=== PATIENT | female | born 1965 | race Caucasian/White ===

== ENCOUNTER 2017-01-01 14:55 | Emergency (ER) | payer SELFPAY ==
[2017-01-01 15:09] VITALS: RESP 16; TEMP 98.1; O2SAT 98
--- NOTE | 2017-01-01 15:24 | C.PDOC ---
History Of Present Illness 51 y/o female pmhx HTN, diabetes presents to the ED with complains of chest pain and arm pain which onset today. pt states she had left arm and chest pain today, which has resolved in the er. Pt reports having stress test last year but unsure of the results. Denies fever, chills, vomiting, dizziness or any other complaints. Time Seen by Provider: 01/01/17 15:03 Chief Complaint (Nursing): Chest Pain History Per: Patient History/Exam Limitations: no limitations Onset/Duration Of Symptoms: Hrs Current Symptoms Are (Timing): Still Present Severity: Mild Quality: "Pain" Associated Symptoms: Dyspnea Alleviating Factors: None Recent travel outside of the [place]: No Past Medical History Reviewed: Historical Data, Nursing Documentation, Vital Signs Vital Signs: Last Vital Signs Temp 98.1 F 01/01/17 15:06 Pulse 70 01/01/17 16:52 Resp 16 01/01/17 16:52 BP 112/73 01/01/17 16:52 Pulse Ox 98 01/01/17 16:55 - Medical History PMH: HTN, Hypercholesterolemia, Migraine Family History: States: Unknown Family Hx - Social History Hx Alcohol Use: No Hx Substance Use: No - Immunization History Hx Tetanus Toxoid Vaccination: No Hx Influenza Vaccination: No Hx Pneumococcal Vaccination: No Review Of Systems Except As Marked, All Systems Reviewed And Found Negative. Constitutional: Negative for: Fever Cardiovascular: Positive for: Chest Pain Respiratory: Positive for: Other (dyspnea) Gastrointestinal: Negative for: Vomiting Neurological: Negative for: Dizziness Physical Exam - Physical Exam Appears: Non-toxic, No Acute Distress Skin: Warm, Dry, No Rash Head: Atraumatic, Normacephalic Neck: Normal ROM, Supple Chest: Symmetrical Cardiovascular: Rhythm Regular, No Murmur Respiratory: Normal Breath Sounds, No Rales, No Rhonchi, No Wheezing Gastrointestinal/Abdominal: Soft Extremity: No Pedal Edema Extremity: Bilateral: Atraumatic Neurological/Psych: Oriented x3, Normal Speech ED Course And Treatment - Laboratory Results Result Diagrams: 01/01/17 15:24 01/01/17 15:24 ECG: Interpreted By Me, Viewed By Me ECG Rhythm: Sinus Rhythm Rate From EC (BPM) O2 Sat by Pulse Oximetry: 98 (on room air) Pulse Ox Interpretation: Normal Medical Decision Making Medical Decision Making: cp r/o acs - atypical pain. pt pain free in er Plan: EKG, labs, CXR, UA, IV fluids 450: pt pain free, smiling in er, pt requesting to be d/c, instead of further observation, repeat blood work, admission to hospital. . no ekg changes, reported neg stress recently last year neg, trop neg. atypcial pain. low heart score. Disposition - Disposition Referrals: Drew Singh MD [Staff Provider] - Disposition: HOME/ ROUTINE Disposition Time: 16:52 Condition: STABLE Additional Instructions: please follow up with your doctor. return to er with worsening symptoms or concerns. Instructions: Chest Pain (ED) - Clinical Impression Clinical Impression: Chest pain - Scribe Statement The provider has reviewed the documentation as recorded by the Juan Ashby Provider Attestation: All medical record entries made by the Juan were at my direction and personally dictated by me. I have reviewed the chart and agree that the record accurately reflects my personal performance of the history, physical exam, medical decision making, and the department course for this patient. I have also personally directed, reviewed, and agree with the discharge instructions and disposition.
[2017-01-01 15:29] LABS: BASO % 0.5 % (0.0-2.0); EOS # 0.1 K/uL (0.0-0.7); EOS % 1.3 % (0.0-4.0); HEMATOCRIT 37.7 % (34.0-47.0); LYMPH # 1.1 K/uL (1.0-4.3); LYMPH % 18.4 % (20.0-40.0); MEAN CELL VOLUME 86.4 fL (81.0-99.0); MEAN CORPUSCULAR HEMOGLOBIN 29.5 pg (27.0-31.0); MEAN CORPUSCULAR HGB CONC 34.1 g/dL (33.0-37.0); MEAN PLATELET VOLUME 9.6 fL (7.2-11.7); MONO # 0.4 K/uL (0.0-0.8); MONO % 7.1 % (0.0-10.0); RED CELL DISTRIBUTION WIDTH 13.9 % (11.5-14.5); WHITE BLOOD COUNT 6.1 K/uL (4.8-10.8)
[2017-01-01 15:36] LABS: CHLORIDE 100 mmol/L (98-107); SODIUM 140 mmol/L (132-148)
[2017-01-01 15:37] LABS: POTASSIUM 4.1 mmol/L (3.6-5.2)
[2017-01-01 15:39] LABS: ALB/GLOB RATIO 1.2 (1.0-2.1); ALKALINE PHOSPHATASE 59 U/L (38-126); ALT/SGPT 18 U/L (9-52); AST/SGOT 21 U/L (14-36); BILIRUBIN,TOTAL 0.2 mg/dL (0.2-1.3); BLOOD UREA NITROGEN 12 mg/dL (7-17); CALCIUM 9.2 mg/dl (8.6-10.4); CARBON DIOXIDE 26 mmol/L (22-30); GFR AFRICAN-AMERICAN > 60; GLUCOSE,RANDOM 120 mg/dL (65-105)
--- NOTE | 2017-01-01 16:16 | RAD ---
PROCEDURE: CHEST RADIOGRAPH, 1 VIEW. Technique: Single view portable semi erect @ 15:55. HISTORY: chest pain COMPARISON: 04/28/2016. FINDINGS: LUNGS: Clear. PLEURA: No pneumothorax or pleural fluid seen. CARDIOVASCULAR: No radiographic findings to suggest acute or significant cardiovascular disease. OSSEOUS STRUCTURES: No significant abnormalities. VISUALIZED UPPER ABDOMEN: Normal. OTHER FINDINGS: None. IMPRESSION: No active disease. No acute/significant interval changes.
[2017-01-01 16:30] LABS: RBC URINE < 1 /hpf (0-3); URINE BILIRUBIN NEGATIVE (NEGATIVE); URINE BLOOD 2+ (NEGATIVE); URINE COLOR Colorless (YELLOW); URINE GLUCOSE (UA) NORMAL (Normal); URINE KETONE NEGATIVE (NEGATIVE); URINE LEUKOCYTE ESTERASE NEG Leu/uL (Negative); URINE PROTEIN NEGATIVE (NEGATIVE); URINE UROBILINOGEN NORMAL mg/dL (0.2-1.0); WBC URINE 1 /hpf (0-5)
[2017-01-01 16:52] VITALS: BP 112/73; PULSE 70
== END 2017-01-01 17:17 | disposition home or self-care (01) ==
LOC: C.ER 14:55
DX: R07.9 Chest pain, unspecified (principal)

== ENCOUNTER 2018-05-31 18:13 | Emergency (ER) | payer OTHER, SELFPAY ==
[2018-05-31 18:19] VITALS: BMI 24.1
[2018-05-31 18:20] VITALS: PULSE 74
[2018-05-31] MEDS ORDERED: Lactated Ringer's 1,000 ML IV STA (19:37)
[2018-05-31 20:02] LABS: BASO % 0.4 % (0.0-2.0); EOS # 0.1 K/uL (0.0-0.7); EOS % 2.5 % (0.0-4.0); HEMOGLOBIN 12.2 g/dL (11.0-16.0); LYMPH # 1.8 K/uL (1.0-4.3); LYMPH % 29.2 % (20.0-40.0); MEAN CELL VOLUME 87.5 fL (81.0-99.0); MEAN CORPUSCULAR HEMOGLOBIN 29.8 pg (27.0-31.0); MEAN CORPUSCULAR HGB CONC 34.1 g/dL (33.0-37.0); MEAN PLATELET VOLUME 8.9 fL (7.2-11.7); MONO # 0.6 K/uL (0.0-0.8); MONO % 9.3 % (0.0-10.0); NEUT # 3.5 K/uL (1.8-7.0); NEUT % 58.6 % (50.0-75.0); NRBC % 0.1 % (0.0-2.0); RBC 4.09 Mil/uL (3.80-5.20); RED CELL DISTRIBUTION WIDTH 13.7 % (11.5-14.5)
[2018-05-31 20:14] LABS: ALB/GLOB RATIO 1.1 (1.0-2.1); ALBUMIN 4.2 g/dL (3.5-5.0); ALT/SGPT 37 U/L (9-52); AST/SGOT 27 U/L (14-36); BLOOD UREA NITROGEN 12 mg/dL (7-17); CALCIUM 9.4 mg/dl (8.6-10.4); GFR NON-AFRICAN AMERICAN > 60
[2018-05-31 20:19] LABS: SQUAMOUS EPITHIAL 1 /hpf (0-5); URINE BACTERIA RARE (<OCC); URINE BILIRUBIN NEGATIVE (NEGATIVE); URINE BLOOD 2+ (NEGATIVE); URINE CLARITY Clear (Clear); URINE COLOR Straw (YELLOW); URINE GLUCOSE (UA) NORMAL (Normal); URINE LEUKOCYTE ESTERASE TRACE Leu/uL (Negative); URINE PROTEIN NEGATIVE (NEGATIVE); URINE UROBILINOGEN NORMAL mg/dL (0.2-1.0)
--- NOTE | 2018-05-31 20:55 | C.PDOC ---
History Of Present Illness 53 year old female presents to the ER with a complaint of a headache for the past 3 days, contrary to triage the headache is left sided. Patient states the pain is associated with occasional left facial numbness and occasionally radiates to the jaw. She reports she has been unable to get any relief with OTC medications. Denies weakness or change in vision. Time Seen by Provider: 05/31/18 19:26 Chief Complaint (Nursing): Headache History Per: Patient History/Exam Limitations: no limitations Onset/Duration Of Symptoms: Days Current Symptoms Are (Timing): Still Present Preceeding Symptoms: None Associated Symptoms: Other (Occasional left facial numbness) Recent travel outside of the [place]: No Past Medical History Reviewed: Historical Data, Nursing Documentation, Vital Signs Vital Signs: Last Vital Signs Temp 98.4 F 05/31/18 22:50 Pulse 74 05/31/18 22:50 Resp 20 05/31/18 22:50 BP 140/80 05/31/18 22:50 Pulse Ox 99 06/01/18 00:40 - Medical History PMH: HTN, Hypercholesterolemia, Migraine Denies: Chronic Kidney Disease Family History: States: Unknown Family Hx - Social History Hx Alcohol Use: No Hx Substance Use: No - Immunization History Hx Tetanus Toxoid Vaccination: No Hx Influenza Vaccination: No Hx Pneumococcal Vaccination: No Review Of Systems Eyes: Negative for: Vision Change Gastrointestinal: Negative for: Nausea, Vomiting Neurological: Positive for: Numbness, Headache. Negative for: Weakness Physical Exam - Physical Exam Appears: Non-toxic Skin: Normal Color, Warm, Dry Head: Atraumatic, Normacephalic, Other (Tenderness to left mandaen area. No TMJ or jaw tenderness.) Eye(s): bilateral: Normal Inspection, PERRL, EOMI Oral Mucosa: Moist Neck: Normal, Supple Neurological/Psych: Oriented x3, Normal Speech ED Course And Treatment - Laboratory Results Result Diagrams: 05/31/18 19:58 05/31/18 19:58 O2 Sat by Pulse Oximetry: 99 (Room air) Pulse Ox Interpretation: Normal - CT Scan/US Head CT Other Rad Studies (CT/US): Read By Radiologist, Radiology Report Reviewed CT/US Interpretation: EXAM: CT Head Without Intravenous Contrast. CLINICAL HISTORY: 53 years old, female; Pain; Headache; Headache not specified. TECHNIQUE: Axial computed tomography images of the head/brain without intravenous contrast. All CT scans at. this facility use at least one of these dose optimization techniques: automated exposure control; mA. and/or kV adjustment per patient size (includes targeted exams where dose is matched to clinical. indication); or iterative reconstruction. Coronal and sagittal reformatted images were created and reviewed. COMPARISON: No relevant prior studies available. FINDINGS: Brain: Unremarkable. No hemorrhage. No significant white matter disease. No edema. Normal. pineda white matter interfaces are present. Ventricles: Unremarkable. No ventriculomegaly. Bones/ joints: Unremarkable. No acute fracture. Soft tissues: Unremarkable. Sinuses: Unremarkable as visualized. No acute sinusitis. Mastoid air cells: Unremarkable as visualized. No mastoid effusion. IMPRESSION: Normal head/ brain CT. Thank you for allowing us to participate in the care of your patient. Dictated and Authenticated by: Reji Riggins MD. 05/31/2018 8:29 PM Eastern Time ([place] & [place]) Progress Note: CT head, blood work, and urinalysis ordered. CT was negative, labs showed significantly elevated ESR and CRP suspicious for possible temporal arteritis. IV fluids, decadron, reglan, and toradol administered. On reevaluation, patient reports she still has pain, will discharge home with Rx for prednisone 1mg/kg for 1 week, advised to follow up with neuro and mathematics technician or return immediately if symptoms worsen. Disposition - Disposition Referrals: Clint Berg MD [Staff Provider] - Juan Gale MD [Staff Provider] - Disposition: HOME/ ROUTINE Disposition Time: 21:41 Condition: STABLE Additional Instructions: Follow up with Neurologist and Rheumathologist within 2-3 days. Return to ED immediately if feel worse. Prescriptions: Blood Sugar Diagnostic [Contour Next] 1 each MC TID #100 strip predniSONE [predniSONE Tab] 3 tab PO DAILY #21 tab Instructions: Polymyalgia Rheumatica and Giant Cell Arteritis, Headache, Adult Forms: [employer] (Mongolian) Print Language: ROMANIAN - Clinical Impression Clinical Impression: Headache - PA / TRADEMARK PARALEGAL / Resident Statement MD/DO has reviewed & agrees with the documentation as recorded. - Scribe Statement The provider has reviewed the documentation as recorded by the Scribe Rohan Jean All medical record entries made by the Scribe were at my direction and personally dictated by me. I have reviewed the chart and agree that the record accurately reflects my personal performance of the history, physical exam, medical decision making, and the department course for this patient. I have also personally directed, reviewed, and agree with the discharge instructions and disposition.
[2018-05-31] MEDS ORDERED: Dexamethasone 4 mg/1 ml IVP STA (21:39)
[2018-05-31 22:52] VITALS: BP 140/80; RESP 20; TEMP 98.4
[2018-06-01 00:33] VITALS: O2SAT 99
--- NOTE | 2018-06-01 13:24 | CT ---
Date of service: 05/31/2018 PROCEDURE: CT HEAD WITHOUT CONTRAST. HISTORY: Headache COMPARISON: None available. TECHNIQUE: Axial computed tomography images were obtained through the head/brain without intravenous contrast. Radiation dose: Total exam DLP = 846.55 mGy-cm. This CT exam was performed using one or more of the following dose reduction techniques: Automated exposure control, adjustment of the mA and/or kV according to patient size, and/or use of iterative reconstruction technique. FINDINGS: HEMORRHAGE: No intracranial hemorrhage. BRAIN: Normal mims-white matter differentiation and density are appreciated throughout the cerebrum and cerebellum with the brainstem appearing unremarkable as well. There is no mass effect. There is no suspicious extra-axial fluid collection and the midline brain anatomy appears diffusely unremarkable. VENTRICLES: Unremarkable. No hydrocephalus. CALVARIUM: Unremarkable. PARANASAL SINUSES: Unremarkable as visualized. No significant inflammatory changes. MASTOID AIR CELLS: Unremarkable as visualized. No inflammatory changes. OTHER FINDINGS: None. IMPRESSION: Unremarkable noncontrast head CT. Concordant preliminary report from [facility], 05/31/2018.
== END 2018-05-31 22:50 | disposition home or self-care (01) ==
LOC: C.ER 18:13
DX: R51 Headache (principal); E78.00 Pure hypercholesterolemia, unspecified; I10 Essential (primary) hypertension
CPT/HCPCS: 70450; 80053; 81001; 85025; 85651; 86140; 96374; 96375; 99285; J1100; J1885; J2765; J7120

== ENCOUNTER 2018-11-30 11:11 | Emergency (ER) | payer OTHER, SELFPAY ==
[2018-11-30 11:12] VITALS: BMI 24.1
[2018-11-30] MEDS ORDERED: Sodium Chloride 0.9% 1,000 ML IV ONE (11:40)
--- NOTE | 2018-11-30 11:46 | C.PDOC ---
History Of Present Illness 53 y/o male pt with hx of HTN, HLD and DM presents to the ER c/o subjective fever for x4 days. Associated sx includes productive cough with white sputum, body aches and SOB. Pt has only been taking Theraflu with no relief. Pt does not have any other associated sx or complaints. Time Seen by Provider: 11/30/18 11:25 Chief Complaint (Nursing): Flu-like Symptoms History Per: Patient History/Exam Limitations: no limitations Onset/Duration Of Symptoms: Days (x4) Current Symptoms Are (Timing): Still Present Past Medical History Reviewed: Historical Data, Nursing Documentation, Vital Signs Vital Signs: Last Vital Signs Temp 100.2 F H 11/30/18 11:17 Pulse 104 H 11/30/18 11:17 Resp 18 11/30/18 11:17 BP 115/75 11/30/18 11:17 Pulse Ox 95 11/30/18 11:17 - Medical History PMH: HTN, Hypercholesterolemia, Migraine Family History: States: Unknown Family Hx - Social History Hx Alcohol Use: No Hx Substance Use: No - Immunization History Hx Tetanus Toxoid Vaccination: No Hx Influenza Vaccination: No Hx Pneumococcal Vaccination: No Review Of Systems Constitutional: Positive for: Fever (subjective) Eyes: Negative for: Pain ENT: Negative for: Ear Pain Cardiovascular: Negative for: Chest Pain Respiratory: Positive for: Cough (with white sputum), Shortness of Breath Gastrointestinal: Negative for: Nausea, Vomiting, Abdominal Pain Genitourinary: Negative for: Dysuria, Frequency, Incontinence Musculoskeletal: Positive for: Other (body aches ) Skin: Negative for: Rash Neurological: Negative for: Weakness, Numbness Physical Exam - Physical Exam Appears: Non-toxic, In Acute Distress (uncomfortable; unwell) Skin: Dry, No Rash, Other (hot) Head: Normacephalic Eye(s): bilateral: Normal Inspection Ear(s): Bilateral: Normal Nose: Normal Oral Mucosa: Moist Throat: Normal, No Erythema, No Exudate Cardiovascular: Rhythm Regular Respiratory: Decreased Breath Sounds (at left base ), No Accessory Muscle Use, No Rales, No Rhonchi, No Stridor, No Wheezing Neurological/Psych: Oriented x3, Normal Speech, Normal Cognition ED Course And Treatment - Laboratory Results Result Diagrams: 11/30/18 11:45 11/30/18 11:45 O2 Sat by Pulse Oximetry: 95 (RA) Pulse Ox Interpretation: Normal - Other Rad chest X-Ray: Read By Radiologist Interpretation: Accession No. : [id number]. Patient Name / ID : BETH RAGSDALE / [id number]. Exam Date : 11/30/2018 11:41:58 ( Approved ). Study Comment : Sex / Age : F / 53Y. Creator : Sam Carrillo MD. Dictator : Sam Carrillo MD. Hypnotherapist : Assembly Cleaner : Sam Carrillo MD. Approver2 : Report Date : 11/30/2018 13:00:19. My Comment : . Date of service: 11/30/2018. HISTORY: SOB cough fever. COMPARISON: 01/01/2017. TECHNIQUE: Chest PA and lateral. FINDINGS: LUNGS: No active pulmonary disease. PLEURA: No significant pleural effusion identified. No pneumothorax apparent. CARDIOVASCULAR: No aortic atheroscler otic calcification present. Normal cardiac size. No pulmonary vascular congestion. OSSEOUS STRUCTURES: No significant abnormalities. VISUALIZED UPPER ABDOMEN: Normal. OTHER FINDINGS: None. IMPRESSION: No active disease. Medical Decision Making Medical Decision Making: Plans: -- chem labs -- blood work -- CXR -- flu swab -- IV fluids -- Tylenol Flu swab results: +Fllu A pt now sts fever duidn't start until yesterday. give pt's co-morbid conditions, will give tamilflu. Disposition Counseled Patient/Family Regarding: Studies Performed, Diagnosis, Need For Followup, Rx Given - Disposition Referrals: [facility] [Outside] Disposition: HOME/ ROUTINE Disposition Time: 13:55 Condition: IMPROVED Additional Instructions: [place] Tamiflu segn lo prescrito. [place] Tylenol y Motrin cada 4 horas. Folleto en clnica mdica en pocos cosby. Regrese a la alberto de emergencias por cualquier empeoramiento de los sntomas Take Tamiflu as prescribed. Alternate Tylenol and Motrin every 4 hours. FOllow up in medical clinic in a few days. Return to ER for any worsening symptoms. Prescriptions: Oseltamivir Phosphate [Tamiflu] 75 mg PO BID #10 capsule Instructions: Flu, Adult (DC) Forms: Gen Discharge Inst [place], [employer] (Beninese) - Clinical Impression Clinical Impression: Influenza - PA / FIELD REP / Resident Statement / has reviewed & agrees with the documentation as recorded. - Scribe Statement The provider has reviewed the documentation as recorded by the Juan Murphy Do All medical record entries made by the Ashleyibdeidre were at my direction and personally dictated by me. I have reviewed the chart and agree that the record accurately reflects my personal performance of the history, physical exam, medical decision making, and the department course for this patient. I have also personally directed, reviewed, and agree with the discharge instructions and disposition.
[2018-11-30 11:54] LABS: BASO % 0.4 % (0.0-2.0); EOS % 0.5 % (0.0-4.0); HEMOGLOBIN 11.9 g/dL (11.0-16.0); LYMPH # 0.4 K/uL (1.0-4.3); LYMPH % 7.9 % (20.0-40.0); MEAN CELL VOLUME 88.5 fL (81.0-99.0); MEAN CORPUSCULAR HEMOGLOBIN 30.2 pg (27.0-31.0); MEAN CORPUSCULAR HGB CONC 34.1 g/dL (33.0-37.0); MEAN PLATELET VOLUME 8.9 fL (7.2-11.7); MONO # 0.4 K/uL (0.0-0.8); MONO % 7.7 % (0.0-10.0); NEUT # 4.4 K/uL (1.8-7.0); NEUT % 83.5 % (50.0-75.0); PLATELET COUNT 188 K/uL (130-400); RBC 3.93 Mil/uL (3.80-5.20); RED CELL DISTRIBUTION WIDTH 13.8 % (11.5-14.5); WHITE BLOOD COUNT 5.3 K/uL (4.8-10.8)
[2018-11-30 12:06] LABS: ALB/GLOB RATIO 1.3 (1.0-2.1); ALBUMIN 4.3 g/dL (3.5-5.0); ALT/SGPT 20 U/L (9-52); AST/SGOT 30 U/L (14-36); BLOOD UREA NITROGEN 10 mg/dL (7-17); CALCIUM 8.9 mg/dl (8.6-10.4); GFR NON-AFRICAN AMERICAN > 60
[2018-11-30 12:10] LABS: SQUAMOUS EPITHIAL 1 /hpf (0-5); URINE BACTERIA RARE (<OCC); URINE BILIRUBIN NEGATIVE (NEGATIVE); URINE BLOOD 2+ (NEGATIVE); URINE CLARITY Clear (Clear); URINE COLOR Yellow (YELLOW); URINE GLUCOSE (UA) NORMAL (Normal); URINE LEUKOCYTE ESTERASE 1+ Leu/uL (Negative); URINE PROTEIN NEGATIVE (NEGATIVE); URINE UROBILINOGEN NORMAL mg/dL (0.2-1.0)
[2018-11-30 12:12] LABS: EOSINOPHIL 1 % (0-4); LYMPHOCYTE 5 % (20-40); MONOCYTE 8 % (0-10); NEUTROPHIL 86 % (50-75); PLATELET ESTIMATE NORMAL (NORMAL); TOTAL CELLS COUNTED 100
[2018-11-30 12:13] LABS: ANISOCYTOSIS SLIGHT; LARGE PLATELETS PRESENT
--- NOTE | 2018-11-30 13:03 | RAD ---
Date of service: 11/30/2018 HISTORY: SOB cough fever COMPARISON: 01/01/2017 TECHNIQUE: Chest PA and lateral FINDINGS: LUNGS: No active pulmonary disease. PLEURA: No significant pleural effusion identified. No pneumothorax apparent. CARDIOVASCULAR: No aortic atherosclerotic calcification present. Normal cardiac size. No pulmonary vascular congestion. OSSEOUS STRUCTURES: No significant abnormalities. VISUALIZED UPPER ABDOMEN: Normal. OTHER FINDINGS: None. IMPRESSION: No active disease.
[2018-11-30 13:44] VITALS: BP 104/66; PULSE 83; RESP 16; TEMP 98.4
[2018-11-30 13:57] VITALS: O2SAT 95
== END 2018-11-30 14:05 | disposition home or self-care (01) ==
LOC: C.ER 11:11
DX: J11.1 Influenza due to unidentified influenza virus with other respiratory manifestations (principal); I10 Essential (primary) hypertension; E78.00 Pure hypercholesterolemia, unspecified
CPT/HCPCS: 71046; 80053; 81001; 85025; 87804; 96360; 99284; J7030

== ENCOUNTER 2019-02-17 11:12 | Outpatient (CLI) | payer OTHER | END 2019-02-17 11:13 | disposition home or self-care (01) | LOC: C.USIC 11:12 ==